=== PATIENT | female | born 1995 | race Caucasian/White ===

== ENCOUNTER → 2017-06-04 | Outpatient (CLI) | payer OTHER | LOC: BMCIMAGING 10:09 | PROVIDERS: ATTEND Internal Medicine | DX: R10.9 Unspecified abdominal pain (principal); Z87.442 Personal history of urinary calculi ==

== ENCOUNTER → 2018-07-15 | Outpatient (CLI) | payer BC | LOC: FIMAGING 14:30 | PROVIDERS: ATTEND Obstetrics & Gynecology Gynecology | DX: N63.10 Unspecified lump in the right breast, unspecified quadrant (principal); Z80.3 Family history of malignant neoplasm of breast ==